=== PATIENT | male | born 1995 | race Two or more races ===

== ENCOUNTER 2020-06-09 22:36 | Emergency (ER) | payer MEDICAID ==
[~2020-06-09] VITALS: Ht 185.4 cm; Wt 72.6 kg
[2020-06-10] MEDS ORDERED: TETANUS-DIPTH-ACEL PERTUSSIS 0.5ML SYR Tdap IM ONE (02:30)
[2020-06-10] MEDS ORDERED: SILVER SULFADIAZINE 1 % TOPICAL CREAM 50GM TOP ONE (02:30)
[2020-06-10 02:47] VITALS: BP 140/90
== END 2020-06-10 02:51 | disposition home or self-care (01) ==
LOC: ER 22:40
DX: T23.201A Burn of second degree of right hand, unspecified site, initial encounter (principal); T23.231A Burn of second degree of multiple right fingers (nail), not including thumb, initial encounter; X08.8XXA Exposure to other specified smoke, fire and flames, initial encounter; Y93.89 Activity, other specified; Y92.89 Other specified places as the place of occurrence of the external cause; Y99.8 Other external cause status
CPT/HCPCS: 16020; 90471; 90715

== ENCOUNTER 2021-07-24 21:19 | Emergency (ER) | payer MEDICAID ==
[~2021-07-24] VITALS: Ht 185.4 cm; Wt 81.6 kg
[2021-07-24 21:21] VITALS: BP 147/86
== END 2021-07-25 01:53 | disposition left against medical advice (07) ==
LOC: ER 21:30
DX: S51.812A Laceration without foreign body of left forearm, initial encounter (principal); R51.9 Headache, unspecified; Z53.21 Procedure and treatment not carried out due to patient leaving prior to being seen by health care provider; W26.8XXA Contact with other sharp object(s), not elsewhere classified, initial encounter; Y93.89 Activity, other specified; Y92.89 Other specified places as the place of occurrence of the external cause; Y99.8 Other external cause status
CPT/HCPCS: 73090

== ENCOUNTER 2022-01-29 16:46 | Emergency (ER) | payer MEDICAID ==
[~2022-01-29] VITALS: Ht 175.3 cm; Wt 83.9 kg
[2022-01-29 17:43] VITALS: BP 129/70
[2022-01-29] MEDS ORDERED: IBUP800T27 PO (17:57)
[2022-01-29] MEDS ORDERED: METH750T22 PO (17:57)
[2022-01-29] MEDS ORDERED: IBUPROFEN 800 MG TAB PO ONE (18:15)
== END 2022-01-29 18:14 | disposition home or self-care (01) ==
LOC: ER 16:46
DX: S46.911A Strain of unspecified muscle, fascia and tendon at shoulder and upper arm level, right arm, initial encounter (principal); S43.401A Unspecified sprain of right shoulder joint, initial encounter; Z79.1 Long term (current) use of non-steroidal anti-inflammatories (NSAID); Z79.899 Other long term (current) drug therapy; W01.0XXA Fall on same level from slipping, tripping and stumbling without subsequent striking against object, initial encounter; Y93.89 Activity, other specified; Y92.89 Other specified places as the place of occurrence of the external cause; Y99.8 Other external cause status
CPT/HCPCS: 29105; 73030; 73060

== ENCOUNTER 2022-07-02 15:17 | Emergency (ER) | payer MEDICAID ==
[~2022-07-02] VITALS: Ht 185.4 cm; Wt 80.0 kg
[~2022-07-02 15:17] MED LIST: IBUP800T27 PO; METH750T22 PO
[2022-07-02 16:43] LABS: Basophils # (auto) 0.1 10 ^3/uL (0-0.2); Basophils % (auto) 0.5 % (0.0-2.0); Eosinophils # (auto) 0 10 ^3/uL (0-0.8); Eosinophils % (auto) 0.3 % (0.0-7.0); Hematocrit 39.3 % (41.0-53.0); Hemoglobin 12.8 g/dL (13.5-17.5); Lymphocytes # (auto) 1.9 10 ^3/uL (0.4-5.4); Lymphocytes % (auto) 18.8 % (10.0-50.0); Mean Corpuscular Hemoglobin 29.3 pg (28.0-32.0); Mean Corpuscular Hgb Conc. 32.6 g/dL (32.0-36.0); Mean Corpuscular Volume 89.7 fL (80.0-100.0); Monocytes # (auto) 0.5 10 ^3/uL (0-1.3); Monocytes % (auto) 4.9 % (0.0-12.0); Neutrophils # (auto) 7.5 10 ^3/uL (1.6-8.6); Neutrophils % (auto) 75.5 % (37.0-80.0); Red Blood Cells 4.39 10^6/uL (4.5-5.90); White Blood Cell 9.9 10^3/uL (4.4-10.8)
[2022-07-02 16:59] LABS: INR 0.93 (0.9-1.15); Partial Thromboplastin Time 29.3 sec (24.6-33.4)
[2022-07-02] MEDS ORDERED: MORPHINE SULFATE 4 MG/ML SYR/VIAL IV ONE (17:00)
[2022-07-02] MEDS ORDERED: ONDANSETRON HCL 4 MG/2 ML VIAL IV ONE (17:00)
[2022-07-02 17:08] LABS: Albumin 4.4 g/dL (3.4-5.0); Calcium 9.5 mg/dL (8.5-10.1); Potassium 3.7 mmol/L (3.5-5.1)
[2022-07-02 17:12] LABS: Bilirubin, Total 0.4 mg/dL (0.2-1.0); Total Protein 8.4 g/dL (6.4-8.2)
[2022-07-02 19:10] VITALS: BP 125/75
== END 2022-07-02 19:17 | disposition short-term general hospital (02) ==
LOC: ER 15:17
DX: S42.302A Unspecified fracture of shaft of humerus, left arm, initial encounter for closed fracture (principal); S12.600A Unspecified displaced fracture of seventh cervical vertebra, initial encounter for closed fracture; V43.52XA Car driver injured in collision with other type car in traffic accident, initial encounter; Y93.89 Activity, other specified; Y92.89 Other specified places as the place of occurrence of the external cause; Y99.8 Other external cause status
CPT/HCPCS: 36415; 70450; 72125; 73060; 80053; 85025; 85610; 85730; 96374; 96375; 99285; J2270; J2405

== ENCOUNTER 2022-12-21 21:16 | Emergency (ER) | payer MEDICAID ==
[~2022-12-21] VITALS: Ht 185.4 cm; Wt 81.8 kg
[2022-12-22] MEDS ORDERED: IBUP800T26 PO (01:55)
[2022-12-22 02:26] VITALS: BP 131/74
== END 2022-12-22 04:17 | disposition home or self-care (01) ==
LOC: EDBD 21:16 → ER 21:18
DX: S80.11XA Contusion of right lower leg, initial encounter (principal); F17.210 Nicotine dependence, cigarettes, uncomplicated; W22.8XXA Striking against or struck by other objects, initial encounter; Y93.89 Activity, other specified; Y92.89 Other specified places as the place of occurrence of the external cause; Y99.8 Other external cause status
CPT/HCPCS: 73562; 73590; 73610

== ENCOUNTER 2023-05-03 19:24 | Emergency (ER) | payer MEDICAID ==
[~2023-05-03] VITALS: Ht 177.8 cm; Wt 59.0 kg
[~2023-05-03 19:24] MED LIST changes: +IBUP-1455 PO; +IBUP-1456 PO; -IBUP800T27 PO; +METH-1182 PO; -METH750T22 PO
[2023-05-03] MEDS ORDERED: CYCL-837 PO (23:39)
[2023-05-03] MEDS ORDERED: ACE3T PO (23:39)
[2023-05-03] MEDS ORDERED: ONDANSETRON ODT 4 MG TAB PO ONE (23:45)
[2023-05-03] MEDS ORDERED: HYDROcodone-ACET 10/325MG TAB PO ONE (23:45)
[2023-05-04 00:30] VITALS: BP 128/74
== END 2023-05-04 00:30 | disposition home or self-care (01) ==
LOC: EDBD 19:24 → ER 19:26
DX: S16.1XXA Strain of muscle, fascia and tendon at neck level, initial encounter (principal); F17.210 Nicotine dependence, cigarettes, uncomplicated; X50.9XXA Other and unspecified overexertion or strenuous movements or postures, initial encounter; Y93.89 Activity, other specified; Y92.89 Other specified places as the place of occurrence of the external cause; Y99.8 Other external cause status
CPT/HCPCS: 72125; 99284; Q0162

== ENCOUNTER 2023-10-09 21:28 | Emergency (ER) | payer MEDICAID ==
[~2023-10-09] VITALS: Ht 175.3 cm; Wt 140.0 kg
[~2023-10-09 21:28] MED LIST changes: +ACE3T PO; +CYCL-837 PO
[2023-10-09 21:50] VITALS: BP 134/61; PULSE 104; RESP 18; O2SAT 99
== END 2023-10-09 22:20 | disposition left against medical advice (07) ==
LOC: ER 21:28 → EDBD 21:28 → ER 22:20
DX: R40.4 Transient alteration of awareness (principal); Z53.21 Procedure and treatment not carried out due to patient leaving prior to being seen by health care provider